=== PATIENT | female | born 1950 | race Caucasian/White ===

== ENCOUNTER → 2023-05-31 08:29 | Outpatient (REF) | payer MEDICARE, SELFPAY ==
[2023-05-31 09:25] LABS: % Basophils 0.7 % (0-2); % Eosinophils 4.4 % (0-6); % Immature Granulocytes 0.5 % (0-0.5); % Lymphocytes 9.6 % (20.5-51.1); % Neutrophils 75.8 % (42.2-75.2); Absolute Basophils 0.1 10^3/uL (0-0.2); Absolute Eosinophils 0.4 10^3/uL (0-0.7); Absolute Lymphocytes 0.9 10^3/uL (1.2-3.4); Absolute Monocytes 0.8 10^3/uL (0.1-0.6); Absolute Neutrophils 6.7 10^3/uL (1.4-6.5); Hematocrit 39.3 % (37.0-47.0); Hemoglobin 13.1 g/dL (12.0-16.0); Mean Corp Hgb Conc. 33.3 g/dL (33.0-37.0); Mean Corpuscular Hgb 30.1 pg (27.0-31.0); Mean Corpuscular Volume 90.3 fL (81.0-99.0); Mean Platelet Volume 9.6 fL (7.4-10.4); Nucleated Red Blood Cells % 0 %; Platelet Count 278 10^3/uL (130-400); Red Blood Cell Count 4.35 10^6/uL (4.20-5.40); Red Cell Dist. Width 13.8 % (11.5-14.5); White Blood Cell Count 8.8 10^3/uL (4.8-10.8)
[2023-05-31 10:08] LABS: Erythrocyte Sed Rate 21 mm/hour (0-20)
[2023-05-31 11:02] LABS: ALT (SGPT) 16 U/L (0-35); AST (SGOT) 31 U/L (14-36); Albumin 4.5 g/dl (3.5-5.0); Alkaline Phosphatase 74 U/L (38-126); Blood Urea Nitrogen 32 mg/dl (7-17); Carbon Dioxide 25 mmol/L (22-30); Chloride 103 mmol/L (98-107); Glucose 115 mg/dl (70-99); Potassium 4.8 mmol/L (3.5-5.1); Sodium 137 mmol/L (135-145); Total Bilirubin 0.3 mg/dl (0.2-1.3); Total Protein 7.2 g/dl (6.3-8.2); eGFR > 60.00
[2023-05-31 11:08] LABS: TSH Reflex To Free T4 4.31 uIU/ml (0.47-4.68)
[2023-05-31 11:52] LABS: Glycohemoglobin (HgbA1c) 6.4 % (4.0-5.6)
== END ==
LOC: REG 08:29
PROVIDERS: ATTENDING PHYSICIAN Internal Medicine
DX: R73.03 Prediabetes (principal); E03.9 Hypothyroidism, unspecified; R79.82 Elevated C-reactive protein (CRP)
CPT/HCPCS: 36415; 80053; 83036; 84443; 85025; 85652; 86140

== ENCOUNTER → 2023-06-06 15:14 | Outpatient (REF) | payer MEDICARE, SELFPAY | LOC: RAD 15:14 | PROVIDERS: ATTENDING PHYSICIAN Internal Medicine Cardiovascular Disease; FAMILY PHYSICIAN Internal Medicine | DX: I65.23 Occlusion and stenosis of bilateral carotid arteries (principal) | CPT/HCPCS: 93880 ==

== ENCOUNTER → 2023-07-25 12:52 | Outpatient (REF) | payer MEDICARE, SELFPAY | LOC: HWWDC 12:52 | PROVIDERS: ATTENDING PHYSICIAN Internal Medicine | DX: Z12.31 Encounter for screening mammogram for malignant neoplasm of breast (principal) | CPT/HCPCS: 77063; 77067 ==

== ENCOUNTER → 2023-09-08 15:56 | Outpatient (REF) | payer MEDICARE, SELFPAY | LOC: RAD 15:56 | PROVIDERS: ATTENDING PHYSICIAN Internal Medicine | DX: Z95.0 Presence of cardiac pacemaker (principal) | CPT/HCPCS: 71046 ==

== ENCOUNTER → 2023-09-09 13:33 | Outpatient (REF) | payer MEDICARE, SELFPAY | LOC: MRI 13:33 | PROVIDERS: ATTENDING PHYSICIAN Internal Medicine | DX: M48.061 Spinal stenosis, lumbar region without neurogenic claudication (principal); M19.90 Unspecified osteoarthritis, unspecified site; M25.512 Pain in left shoulder | CPT/HCPCS: 72148; 73221 ==

== ENCOUNTER → 2023-10-01 15:44 | Outpatient (REF) | payer MEDICARE, SELFPAY | LOC: REG 15:44 | PROVIDERS: ATTENDING PHYSICIAN Internal Medicine | DX: I42.9 Cardiomyopathy, unspecified (principal) | CPT/HCPCS: 36415; 82784; 83521; 84155; 84156; 84165; 86334; 86335 ==

== ENCOUNTER → 2023-11-05 09:51 | Outpatient (REF) | payer MEDICARE, SELFPAY ==
[2023-11-05 13:52] LABS: Urine Protein 7 mg/dl (0-12)
[2023-11-05 13:59] LABS: 24 Hour Urine Total Volume 2600 ml
== END ==
LOC: HWLAB 09:51
PROVIDERS: ATTENDING PHYSICIAN Internal Medicine
DX: I42.2 Other hypertrophic cardiomyopathy (principal); I50.30 Unspecified diastolic (congestive) heart failure
CPT/HCPCS: 81050; 83521; 84156; 86335

== ENCOUNTER → 2024-01-02 14:40 | Outpatient (REF) | payer MEDICARE, SELFPAY | LOC: HWRAD 14:40 | PROVIDERS: ATTENDING PHYSICIAN Internal Medicine; REFERRING PHYSICIAN Neurological Surgery | DX: M48.061 Spinal stenosis, lumbar region without neurogenic claudication (principal) | CPT/HCPCS: 72110; 72131 ==

== ENCOUNTER 2024-03-09 15:36 | Emergency (ER) | payer MEDICARE, SELFPAY ==
[2024-03-09 16:08] VITALS: BP 164/94
[2024-03-09 16:46] LABS: % Basophils 0.7 % (0-2); % Immature Granulocytes 0.4 % (0-0.5); % Lymphocytes 8.5 % (20.5-51.1); % Monocytes 4.8 % (1.7-9.3); % Neutrophils 84.6 % (42.2-75.2); Absolute Basophils 0.1 10^3/uL (0-0.2); Absolute Eosinophils 0.1 10^3/uL (0-0.7); Absolute Lymphocytes 0.8 10^3/uL (1.2-3.4); Absolute Monocytes 0.5 10^3/uL (0.1-0.6); Absolute Neutrophils 7.9 10^3/uL (1.4-6.5); Hematocrit 39.8 % (37.0-47.0); Hemoglobin 13.2 g/dL (12.0-16.0); Mean Corp Hgb Conc. 33.2 g/dL (33.0-37.0); Mean Corpuscular Hgb 29.9 pg (27.0-31.0); Mean Platelet Volume 9.6 fL (7.4-10.4); Nucleated Red Blood Cells % 0 %; Platelet Count 292 10^3/uL (130-400); Red Blood Cell Count 4.42 10^6/uL (4.20-5.40); Red Cell Dist. Width 13.9 % (11.5-14.5); White Blood Cell Count 9.4 10^3/uL (4.8-10.8)
[2024-03-09 17:01] LABS: ALT (SGPT) 14 U/L (0-35); AST (SGOT) 28 U/L (14-36); Albumin 4.5 g/dl (3.5-5.0); Alkaline Phosphatase 76 U/L (38-126); Blood Urea Nitrogen 23 mg/dl (7-17); Calcium 9.7 mg/dl (8.4-10.2); Carbon Dioxide 27 mmol/L (22-30); Chloride 101 mmol/L (98-107); Glucose 128 mg/dl (70-99); Potassium 4.6 mmol/L (3.5-5.1); Sodium 136 mmol/L (135-145); Total Bilirubin 0.4 mg/dl (0.2-1.3); Total Protein 7.2 g/dl (6.3-8.2); eGFR > 60.00
[2024-03-09 17:12] LABS: Troponin I 0.014 ng/ml
--- NOTE | 2024-03-09 18:12 | ED.GENMED ---
History of Present Illness
General
Chief Complaint: Chest Pain
Source: patient
Exam Limitations: none
Time Seen by Provider: 03/09/24 17:54
History of Present Illness
History of Present Illness:
73-year-old female with history of coronary artery disease requiring double bypass surgery presents with fatigue and onset of a cold sweat starting at 1130 today. She states the symptoms were very similar to what she had prior to her TX in 2019.
She denies chest pain. She never had chest pain. The cold sweat and lightheadedness seem to last about 2 hours and then resolved. She took an aspirin. She currently notes just fatigue. Dorsalis denies any leg swelling or calf pain. She is not
anticoagulated. No shortness of breath. No known fever. No other complaints at this time
Past History
Past History
ED Past Medical History: HTN, Hypothyroidism and Other (Had lymphoma with radiation treatment 1980. Has 'many missing lymph glands' left side neck from radiation treatments age 20. Has fibrous growth around carotid removed in 2005.)
ED Past Surgical History: Orthopedic (knee, back, wrists,) and Other (Thyroidectomy)
Social History
Tobacco: Non-smoker
Personal:
Living: with family
Employment: Not employed
Phy Exam
Physical Exam
Physical Exam:
General : Well-appearing female no acute respiratory distress
HEENT: Normocephalic atraumatic
heart: Regular rate and rhythm
Lungs: CTA bilaterally
Abd: soft nontender
Ext: No cyanosis
skin: warm, no rash
Scores
Heart Score for Chest Pain Patients
STEMI patient?: No
History: Slightly or Non-Suspicious
ECG: Normal
Age: >/= 65 years
Risk Factors: >/= 3 Risk Factors or History of CAD
Troponin: </= Normal Limit
Heart Score for Chest Pain Patients: 4
Heart Score Risk: 20.3% MACE over next 6 weeks
Course
Orders/Labs/Results
Orders:
Orders
03/09/24 15:37
EKG [Electrocardiogram (*1)] Urgent
Reason for Study: Chest Pain
EKG- Treatment ONCE
03/09/24 16:23
CMP [Comprehensive Metabolic Panel] Urgent
Complete Blood Count/With Diff Urgent
Troponin I Urgent
03/09/24 18:12
CR Chest - 2 Views Urgent
Comment:
Reason For Exam: fatigue
03/09/24 18:48
COVID-19 Antigen Urgent
Source: Nasal Swab
Influenza A+B Rapid Molecular Urgent
MINOR Source: Nasal Swab
Specimen Description:
03/09/24 19:21
Troponin I Urgent
Abnormal Lab Results
03/09/24
16:23
Absolute Neuts (auto) 7.9 H 10^3/uL
(1.4-6.5)
Absolute Lymphs (auto) 0.8 L 10^3/uL
(1.2-3.4)
Neutrophils % 84.6 H %
(42.2-75.2)
Lymphocytes % 8.5 L %
(20.5-51.1)
BUN 23 H mg/dl
(7-17)
Glucose 128 H mg/dl
(70-99)
03/09/24 16:23
03/09/24 16:23
Vital Signs
Initial and Last Documented VS:
Initial Vital Signs
Temp Pulse Resp BP Pulse Ox
98.0 F 78 18 164/94 96
03/09/24 16:08 03/09/24 16:08 03/09/24 16:08 03/09/24 16:08 03/09/24 16:08
Last Documented Vital Signs
Temp Pulse Resp BP Pulse Ox
98.0 F 69 13 174/93 98
03/09/24 16:08 03/09/24 19:50 03/09/24 19:24 03/09/24 19:49 03/09/24 19:24
MDM/Problems Addressed
Differential Diagnosis Includes:
Patient with history of coronary artery disease presents with episode of diaphoresis and fatigue. Symptoms very similar to prior TX in the past. EKG today shows paced rhythm without changes. Troponin is 0.014. Chest x-ray pending. Repeat
troponin pending. COVID and flu test pending as well.
*Critical Care Note
Total Time (30-74mins, 75-104mins- exclusive of procedures): Not Applicable
Update Note
Update Note:
COVID and flu negative. Initial troponin 0.014 and repeat 0.015. Patient reexamined resting comfortably no complaints offer other than fatigue. Chest x-ray is clear. No sign of ACS here. Vital signs remained stable. Discharged no indication
for admission. Discussed with emergency room attending. Will provide cardiology follow-up.
ED Attending Note
-
Portions of this chart may have been created with voice recognition software.� Occasional wrong word or��sound alike� substitutions may have occurred due to the inherent limitations of voice recognition software.
Discharge Plan
Departure
Patient Disposition: Home (Routine Discharge)
Date of Disposition: 03/09/24
Time of Disposition: 20:01
Patient with high blood pressure during this ER visit?: No
Discharge Problem:
Diaphoresis
Instructions: Chest Pain DCA Follow Up
Prescriptions:
No Action
atorvastatin [Lipitor] 80 MG tablet
80 mg PO HS
atenolol 25 MG tablet
25 mg PO DAILY
oxaprozin 600 MG tablet
600 mg PO BID PRN (Reason: pain)
albuterol sulfate 90 MCG/PUFF HFA aerosol inhaler
1 puff inhalation R Q4HPRN PRN (Reason: sob)
valsartan 80 MG tablet
160 mg PO DAILY
levothyroxine [Synthroid] 137 MCG tablet
137 mcg PO DAILY
hydrocodone-acetaminophen 1 TABLET tablet
1 tab PO Q4HPRN PRN (Reason: moderate pain) Qty: 6 0RF
Referrals:
Katelin Mcqueen MD [Family Provider] -
Activity Restrictions/Additional Instructions:
Please return here for worsening symptoms otherwise follow-up with your senior management consultant
Interventions
Interventions:
*Risk Screen - Suicide Last Done: 03/09/24 16:08
*General Assessment Last Done: 03/09/24 16:08
*Neglect/Abuse Screening Last Done: 03/09/24 16:08
*ED COVID-19 Vaccine History Last Done: 03/09/24 16:08
Discharge Date and Time
Print Language: [id number]
[2024-03-09 19:12] LABS: COVID-19 Antigen Negative (Negative)
[2024-03-09 19:49] VITALS: BP 174/93
[2024-03-09 19:53] LABS: Troponin I 0.015 ng/ml
[2024-03-09 20:00] VITALS: BP 169/91
== END 2024-03-09 20:14 | disposition home or self-care (01) ==
LOC: EMR 15:36
PROVIDERS: Emergency Medicine; Physician Assistant; EMERGENCY PHYSICIAN Emergency Medicine; FAMILY PHYSICIAN Internal Medicine
DX: R61 Generalized hyperhidrosis (principal); I25.10 Atherosclerotic heart disease of native coronary artery without angina pectoris; Z11.52 Encounter for screening for COVID-19
CPT/HCPCS: 99285; 71046; 80053; 84484; 85025; 87502; 87811; 93005

== ENCOUNTER → 2024-03-24 11:25 | Outpatient (REF) | payer MEDICARE, SELFPAY | LOC: RAD 11:25 | PROVIDERS: ATTENDING PHYSICIAN Internal Medicine Cardiovascular Disease; FAMILY PHYSICIAN Internal Medicine | DX: G45.1 Carotid artery syndrome (hemispheric) (principal); I65.23 Occlusion and stenosis of bilateral carotid arteries | CPT/HCPCS: 93880 ==

== ENCOUNTER → 2024-03-25 13:55 | Outpatient (REF) | payer MEDICARE, SELFPAY | LOC: HWRCS 13:55 | PROVIDERS: ATTENDING PHYSICIAN Internal Medicine Cardiovascular Disease; FAMILY PHYSICIAN Internal Medicine | DX: I42.1 Obstructive hypertrophic cardiomyopathy (principal) | CPT/HCPCS: 93306 ==

== ENCOUNTER → 2024-04-01 07:51 | Outpatient (REF) | payer MEDICARE, SELFPAY | LOC: HWRCS 07:51 | PROVIDERS: ATTENDING PHYSICIAN Internal Medicine Cardiovascular Disease; FAMILY PHYSICIAN Internal Medicine | DX: Z95.1 Presence of aortocoronary bypass graft (principal) | CPT/HCPCS: 78452; 93017; A9500; J2785 ==

== ENCOUNTER → 2024-06-09 11:41 | Outpatient (REF) | payer MEDICARE, SELFPAY ==
[2024-06-09 16:06] LABS: Uric Acid 5.2 mg/dl (2.5-6.2)
== END ==
LOC: HWLAB 11:41
PROVIDERS: ATTENDING PHYSICIAN Hospitalist; FAMILY PHYSICIAN Internal Medicine
DX: M10.9 Gout, unspecified (principal)
CPT/HCPCS: 36415; 84550

== ENCOUNTER → 2024-10-26 10:55 | Outpatient (REF) | payer MEDICARE, SELFPAY | LOC: WDC 10:55 | PROVIDERS: ATTENDING PHYSICIAN Internal Medicine | DX: Z12.31 Encounter for screening mammogram for malignant neoplasm of breast (principal) | CPT/HCPCS: 77063; 77067 ==